=== PATIENT | male | born 1985 | race African-American/Black ===

== ENCOUNTER 2024-12-04 14:50 | Emergency (ER) | payer MEDICAID, OTHER ==
[~2024-12-04] VITALS: Ht 172.7 cm; Wt 93.0 kg
[~2024-12-04 14:50] MED LIST: HYDR-4833 PO; [UNRECOGNIZED DRUG - CODE] OR
[2024-12-04] MEDS ORDERED: BACDST PO (15:38)
--- NOTE | 2024-12-04 15:38 | ED.PDOC ---
History of Present Illness(SKN HPI Comments This patient is a pleasant but obese 39-year-old male who arrives the ED today for evaluation of any circumcision complication for the past few days. Patient initially had a circumcision approximately two weeks ago. Patient had complications and required a surgical revision a few days back. Subsequent to that revision, patient has continued bleeding and poor wound healing. Patient denies any fever nausea or vomiting. Patient completed his antibiotic regime as directed. Vital signs were stable on arrival. Chief Complaint: Wound Check Time Seen by MD: 15:20 Primary Care Provider: MATTHEW History of Present Illness: Nurses Notes Allergies: Coded Allergies: NO KNOWN ALLERGIES (Unverified , 05/19/13) Home Meds Reported Medications Chlorpheniramine-Phenylephrine (CONTAC COLD/FLU DAY/NIGHT) Day/Nght Tab, 1 NGHT OR, TAB 02/18/15 Hydrocodone-Acetaminophen ([place] 5/325MG) 1 Tab Tb, 1 TAB PO BID, #60 TAB 02/18/15 Information Source: Patient, Spouse Mode of Arrival: Wheelchair Severity: Moderate Timing: Days Duration: Since onset Prehospital treatment: Pain Meds Location: Other (Penis) Mechanism: Preceding Wound Occurence: Indoors Object: Other (Circumcision performed) Tetanus: UTD Associated Signs and Symptoms: Redness, Swelling Past Medical History PAST MEDICAL HISTORY: Asthma Surgical History: Denies all surgeries Surgical History (Other): Recent circumcision Family History Family History: Unobtainable Social History Smoker: Cigarettes, Greater Than 1 Pack/Day Alcohol: Occasionally Drugs: Denies Drug Use Lives In: Home Constitutional: denies: chills, diaphoresis, fatigue, fever, malaise, sweats, weakness, others EENTM: denies: blurred vision, double vision, ear bleeding, ear discharge, ear drainage, ear pain, ear ringing, eye pain, eye redness, hearing loss, mouth pain, mouth swelling, nasal discharge, nose bleeding, nose congestion, nose pain, photophobia, tearing, throat pain, throat swelling, voice changes, others Respiratory: denies: cough, hemoptysis, orthopnea, SOB at rest, shortness of breath, SOB with excertion, stridor, wheezing, others Cardiovascular: denies: chest pain, dizzy spells, diaphoresis, Dyspnea on exertion, edema, irregular heart beat, left arm pain, lightheadedness, palpitations, PND, syncope, others Gastrointestinal: denies: abdomen distended, abdominal pain, blood streaked bowels, constipated, diarrhea, dysphagia, difficulty swallowing, hematemesis, melena, nausea, poor appetite, poor fluid intake, rectal bleeding, rectal pain, vomiting, others Genitourinary: denies: burning, dysuria, flank pain, frequency, hematuria, incontinence, penile discharge, penile sore, pain, testicle pain, testicle swelling, urgency, others Neurological: denies: dizziness, fainting, headache, left sided numbness, left sided weakness, numbness, paresthesia, pre-existing deficit, right sided numbness, right sided weakness, seizure, speech problems, tingling, tremors, weakness, others Musculoskeletal: denies: back pain, gout, joint pain, joint swelling, muscle pain, muscle stiffness, neck pain, others Integumetry: reports: wounds (Pain at circumcision site with bleeding); denies: bruises, change in color, change in hair/nails, dryness, laceration, lesions, lumps, rash, others Allergic/Immunocompromised: denies: Difficulty Healing, Frequent Infections, Hives, Itching, others Hematologic/Lymphatic: denies: anemia, blood clots, easy bleeding, easy bruising, swollen glands, others Endocrine: denies: excessive hunger, excessive sweating, excessive thirst, excessive urination, flushing, intolerance to cold, intolerance to heat, unexplained weight gain, unexplained weight loss, others Psychiatric: denies: anxiety, bipolar disorder, depression, hopeless, panic di sorder, schizophrenia, sleepless, suicidal, others Physical Exam General Appearance: Moderate Distress (Due to pain and bleeding at the circumcision site.), Normal HEENT: Normal ENT Inspection, Pharynx Normal, TMs Normal Neck: Full Range of Motion, Non-Tender, Normal, Normal Inspection Respiratory: Chest Non-Tender, Lungs Clear, No Accessory Muscle Use, No Respiratory Distress, Normal Breath Sounds Cardiovascular: No Edema, No JVD, No Murmur, No Gallop, Normal Peripheral Pulses, Regular Rate/Rhythm Breast Exam: Deferred Gastrointestinal: No Organomegaly, Non Tender, No Pulsatile Mass, Normal Bowel Sounds, Soft Genitalia: Other (Circumcision site reveals edema with mild erythema as well as scant bleeding. Tender throughout. No phimosis or paraphimosis.) Pelvic: Deferred Rectal: Deferred Extremities: No calf tenderness, Normal capillary refill, Normal inspection, Normal range of motion, Non-tender, No pedal edema Neurologic: Alert, No Motor Deficits, Normal Affect, Normal Mood, No Sensory Deficits Cerebellar Function: Normal Reflexes: Normal Skin: Dry, Normal Color, Warm Lymphatic: No Adenopathy Was a procedure done? Was a procedure done?: No Differential Diagnosis (INTG) Differential Diagnosis: Other (Skin infection, cellulitis, postoperative complication) X-Ray, Labs, Meds, VS Vital Signs Date Time Temp Pulse Resp B/P (MAP) Pulse Ox O2 Delivery O2 Flow Rate FiO2 12/04/24 15:10 98.0 96 16 153/103 (120) 97 X-Ray, Labs, Meds, VS Comment This patient unfortunately has experienced multiple postoperative complications. Patient will be dispensed an additional antibiotics today and states that he has pain medication available at home. Advised patient to follow up with prior surgeon for continued evaluation and management of his poorly performed circumcision. Time of 1ST Reevaluation: 15:37 Reevaluation 1ST: Unchanged Consultation: PCP, Surgery Patient Education/Counseling: Diagnosis, Treatment Family Education/Counseling: Diagnosis, Treatment Departure 1 Departure Time of Disposition: 15:37 Impression: Primary Impression: Postoperative complication Additional Impression: Circumcision complication Disposition: 01 HOME / SELF CARE / HOMELESS Condition: Stable Additional Instructions: Advise utilizing antibiotics as directed until completion. Patient needs to follow up with his surgeon for continued evaluation and management of his poorly performed circumcision. e-Prescriptions Sulfamethoxazole W/Trimethopri (Bactrim Ds Tablet) 1 Tab Tb 1 TAB PO BID for 10 Days, #20 TAB Prov: JONATAN CASTILLO PAC 12/04/24 Discharged With: Self, Spouse Critical Care Note Critical Care Time?: No Stability Stability form required: No Heart Score Heart Score: Heart Score Response (Comments) Value History N/A 0 EKG N/A 0 Age N/A 0 Risk Factors N/A 0 Troponin N/A 0 Total 0 JONATAN CASTILLO PAC Dec 04, 2024 15:38
[2024-12-04 15:47] VITALS: BP 153/103; PULSE 96; RESP 16; TEMP 98; O2SAT 97
== END 2024-12-04 15:46 | disposition home or self-care (01) ==
LOC: ER 14:50
DX: T81.9XXA Unspecified complication of procedure, initial encounter (principal); N99.89 Other postprocedural complications and disorders of genitourinary system; J45.909 Unspecified asthma, uncomplicated; F17.210 Nicotine dependence, cigarettes, uncomplicated; Z79.899 Other long term (current) drug therapy; Y92.89 Other specified places as the place of occurrence of the external cause